=== PATIENT | female | born 1960 | race American Indian/Alaskan Native ===

== ENCOUNTER 2016-06-15 10:08 | Outpatient (CLI) | payer BC ==
--- NOTE | 2016-06-15 11:30 | XRay Report ---
RIGHT TOES: History: Toe pain, great toe contusion. The bony architecture is intact. Bony alignment is normal. No soft tissue abnormalities are seen. The joint spaces appear preserved. IMPRESSION: Intact right toes.
--- NOTE | 2016-06-16 09:57 | XRay Report ---
TEMPOROMANDIBULAR JOINTS, 2 VIEWS: HISTORY: Temporomandibular joint tenderness. FINDINGS: Closed and open mouth views of both temporomandibular joints were obtained. The closed mouth views demonstrate centric placement of the mandibular condyles in the articular fossa of the cranium. There is no evidence for fracture, dislocation, bone lesion or osteochondral defect. Perhaps mild osteoarthritic joint space narrowing is evident. On the open mouth view, no significant abnormality is detected. IMPRESSION: Minimal osteoarthritic changes.
== END 2016-06-15 10:09 | disposition home or self-care (01) ==
LOC: XRAY 10:08
PROVIDERS: ATTEND Internal Medicine
DX: S90.212A Contusion of left great toe with damage to nail, initial encounter (principal); M26.629 Arthralgia of temporomandibular joint, unspecified side
CPT/HCPCS: 70330

== ENCOUNTER 2016-10-15 07:09 | Outpatient (CLI) | payer BC ==
--- NOTE | 2016-10-15 09:36 | Mammography Report ---
Bilateral mammogram: Compared to 01/31/15. CAD study utilized. Findings: Scattered lingular parenchyma bilaterally. 3 mm circumscribed density upper left breast. No calcification. Normal axilla. Impression: New 3 mm circumscribed density left breast. Recommend spot mag and sonographic examination. BI-RADS CATEGORY: 0 = Needs additional imaging evaluation ACR BI-RADS MAMMOGRAPHIC CODES: 0 = Needs additional imaging evaluation; 1 = Negative; 2 = Benign; 3 = Probably benign; 4 = Suspicious; 5 = Malignant; 6 = Known biopsy-proven malignancy COMMENT: 1. Dense breast tissue, i.e., adenosis, fibrocystic changes, etc., may obscure an underlying neoplasm. 2. Approximately 10% of cancers are not detected with mammography. 3. A negative mammography report should not delay biopsy if a clinically suspicious mass is present. COMMENT: Patient follow-up letters are generated in [employer].
== END 2016-10-15 07:10 | disposition home or self-care (01) ==
LOC: MAMMO 07:09
PROVIDERS: ATTEND Internal Medicine
DX: Z12.31 Encounter for screening mammogram for malignant neoplasm of breast (principal)
CPT/HCPCS: 77067; G0202

== ENCOUNTER 2016-10-28 10:06 | Outpatient (CLI) | payer BC ==
--- NOTE | 2016-10-28 11:54 | Ultrasound Report ---
Diagnostic left mammogram and targeted left breast ultrasound. History: Recall for left nodular asymmetry. Findings: Spot compression image of the area of interest in the left breast confirms the presence of a tiny nodular asymmetry in the lateral left breast, not identified with certainty on the 90 degree mediolateral view. No architectural distortion or other suspicious findings are seen. Sonographic evaluation of the lateral half of the left breast demonstrates a 4 mm in diameter round hypoechoic lesion at the 3:00 position. The margins are fairly well-circumscribed and there is no acoustic shadowing. At the 2:00 position, there is a second ovoid shaped complex lesion with sharply circumscribed margins and no acoustic shadowing. This measures 6 x 3 mm. Impression: 2 subcentimeter hypoechoic lesions are seen in the lateral left breast both of which have benign imaging features. BI-RADS code: 3. Recommendation: 6 month followup ultrasound.
== END 2016-10-28 10:07 | disposition home or self-care (01) ==
LOC: MAMMO 10:06
PROVIDERS: ATTEND Internal Medicine
DX: N64.89 Other specified disorders of breast (principal)
CPT/HCPCS: 76642; G0206

== ENCOUNTER 2019-06-21 07:34 | Outpatient (CLI) | payer BC ==
--- NOTE | 2019-06-21 10:26 | Mammography Report ---
DIGITAL SCREENING MAMMOGRAM WITH CAD, 06/21/2019 INDICATION: Routine screening mammography. TECHNIQUE: Digital bilateral 2D mammography was obtained in the craniocaudal and mediolateral obliq ue projections. This examination was interpreted with the benefit of Computer-Aided Detection analysi s. COMPARISON: 10/15/2016 FINDINGS: Breast Density: The breasts are heterogeneously dense, which may obscure small masses. There is no evidence of dominant mass, suspicious calcifications or architectural distortion in eithe r breast. IMPRESSION: No mammographic evidence of malignancy. Follow up recommendation: Routine yearly BI-RADS Category 2: Benign. A "normal" or negative report should not discourage follow up or biopsy of a clinically significant f inding. A written summary of these findings will be mailed to the patient. The patient will be entered into a mammography reporting system which will generate a reminder letter for the patient's next appointmen t at the appropriate interval. The [employer] recommends yearly mammograms starting at age 40 and continuing as l navya as a woman is in good health. Breast MRI is recommended for women with an approximate 20-25% or greater lifetime risk of breast cancer, including women with a strong family history of breast or ova chary cancer or who have been treated for Hodgkin's disease. Signer Name: Anselmo Edwards MD Signed: 06/21/2019 10:22 AM Workstation Name: [id number]
== END 2019-06-21 07:35 | disposition home or self-care (01) ==
LOC: MAMMO 07:34
PROVIDERS: ATTEND Internal Medicine
DX: Z12.31 Encounter for screening mammogram for malignant neoplasm of breast (principal)
CPT/HCPCS: 77067

== ENCOUNTER 2021-04-13 11:08 | Outpatient (CLI) | payer BC ==
--- NOTE | 2021-04-13 15:36 | Mammography Report ---
DIGITAL SCREENING MAMMOGRAM WITH CAD, 04/13/2021 CLINICAL INFORMATION / INDICATION: Routine screening mammography. SCREENING MAMMOGRAM TECHNIQUE: Digital bilateral 2D mammography was obtained in the craniocaudal and mediolateral obliqu e projections. This examination was interpreted with the benefit of Computer-Aided Detection analysis . COMPARISON: 09/01/2011 through 06/21/2019. FINDINGS: Breast Density: There are scattered areas of fibroglandular density. No dominant mass, suspicious calcifications, or architectural distortion in either breast. Benign-appearing nodularity bilaterally is again identified. Benign calcifications in the left breast have not changed significantly. IMPRESSION: No mammographic evidence of malignancy. Follow up recommendation: Routine yearly BI-RADS Category 2: Benign. A "normal" or negative report should not discourage follow up or biopsy of a clinically significant f inding. A written summary of these findings will be mailed to the patient. The patient will be entered into a mammography reporting system which will generate a reminder letter for the patient's next appointmen t at the appropriate interval. The [employer] recommends yearly mammograms starting at age 40 and continuing as l navya as a woman is in good health. Breast MRI is recommended for women with an approximate 20-25% or greater lifetime risk of breast cancer, including women with a strong family history of breast or ova chary cancer or who have been treated for Hodgkin's disease. Signer Name: Kevin Paul MD Signed: 04/13/2021 3:32 PM Workstation Name: [id number]
== END 2021-04-13 11:09 | disposition home or self-care (01) ==
LOC: MAMMO 11:08
PROVIDERS: ATTEND Obstetrics & Gynecology Gynecology
DX: Z12.31 Encounter for screening mammogram for malignant neoplasm of breast (principal); N64.89 Other specified disorders of breast; N63.20 Unspecified lump in the left breast, unspecified quadrant; N63.10 Unspecified lump in the right breast, unspecified quadrant
CPT/HCPCS: 77067